=== PATIENT | male | born 1945 | race Caucasian/White ===

== ENCOUNTER 2018-06-29 15:24 | Emergency (ER) | payer MEDICARE, OTHER ==
--- NOTE | 2018-06-29 16:02 | RAD ---
THREE VIEWS LEFT SHOULDER: 06/29/18 HISTORY: Left shoulder injury. FINDINGS: There is a fracture involving the neck of the left humerus. This is probably minimally comminuted. Th ere is mild impaction of fracture fragments and distal fracture is slightly displaced laterally. Ther e is suggestion of fracture partially extending into the region of the greater tuberosity. 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 No dislocation is seen. Vascular calcification seen in th e thoracic aorta. IMPRESSION: Fracture neck of the left humerus with mild separation and impaction of fracture fragments. The fract ure appears to extend into the greater tuberosity. POS: [facility]
[2018-06-29] MEDS ORDERED: Ibuprofen 800 MG TAB ONE (16:27)
== END 2018-06-29 17:00 | disposition home or self-care (01) ==
LOC: MADERS 15:24
DX: S42.212A Unspecified displaced fracture of surgical neck of left humerus, initial encounter for closed fracture (principal); F17.210 Nicotine dependence, cigarettes, uncomplicated; F41.9 Anxiety disorder, unspecified; W18.30XA Fall on same level, unspecified, initial encounter